=== PATIENT | male | born 1955 | race Caucasian/White ===

== ENCOUNTER → 2017-07-04 | Day surgery (SDC) | payer OTHER ==
[~2017-07-04] MED LIST: ASPIR 8181 MG PO; CARVEDILOL PO; CEFTRIAXONE SOD 1 GM VIAL ONE; CHOLESTYRAMINE PO; DEXAMETHASONE SOD PHOS INJ 4 MG/ML VIAL ONE; EPHEDRINE SULFATE INJ 50 MG/10 ML SYR ONE; FENTANYL CITRATE/PF 100MCG/2 ML INJ ONE; IOPAMIDOL 610MG/1ML 300 MG/ML VIAL IV ONE; ISOFLURANE INHAL SOLN 250 ML BTL INH ONE; LIDOCAINE HCL 2% LOCAL INJ 5 ML SDV VIAL INJ ONE; MIDAZOLAM HCL 2 MG/2 ML VIAL ONE; ONDANSETRON HCL INJ 2 MG/ML VIAL ONE; PROMETHAZINE HCL (IM) 25 MG/ML VIAL ONE; PROPAFENONE PO; PROPOFOL IV EMULSION 10 MG/ML 20 ML VIAL ONE
--- NOTE | 2017-07-04 18:23 | Operative Report ---
DATE OF PROCEDURE: July 04, 2017 PREOPERATIVE DIAGNOSIS 1. Microscopic hematuria. 2. Right-sided hydronephrosis. POSTOPERATIVE DIAGNOSIS 1. Microscopic hematuria. 2. Right-sided hydronephrosis. PROCEDURES 1. Cystourethroscopy with left ureteral catheterization and left retrograde pyelogram (entirely separate procedure for the microscopic hematuria). 2. Cystourethroscopy with right ureteral catheterization and right retrograde pyelogram. 3. Cystourethroscopy with insertion of a right indwelling ureteral stent (entirely separate procedure for the diagnosis of right hydronephrosis). 4. Supervision of fluoroscopy. 5. Interpretation of retrograde pyelography. ANESTHESIA: General. ESTIMATED BLOOD LOSS: Minimal. COMPLICATIONS: None. INDICATIONS FOR PROCEDURE: Mr. Lyon is a very pleasant 61-year-old male with a very large 8 mm proximal ureteral stone obstructing. He and I had a long discussion of the alternatives, the risks and benefits including doing nothing, cystoscopy with stent placement, percutaneous nephrostomy. He voiced understanding of the options, the alternatives, the fact that the stent is a temporary indwelling device and must be removed and that failure to do so could lead to encrustation, infection, inflammation of the natural ostium of the kidney and even . He elects to proceed. PROCEDURE IN DETAIL: After informed consent was obtained, the patient was taken to the operative suite and placed supine on the operating table and underwent general anesthesia by the anesthesia service. He was then placed in the dorsal lithotomy position and sterilely prepped and draped in the standard fashion for cystoscopy. A 22.5-American cystoscope was inserted per urethra. A normal urethra was noted. Panendoscopy of the bladder revealed no tumors, no stones. Both ureteral orifices were in their normal anatomical location and position and were seen to efflux clear urine. Bilateral retrograde pyelograms were performed, revealing a normal left retrograde pyelogram and a large 8 mm proximal right ureteral stone at the UPJ with proximal hydronephrosis. With a moderate degree of difficulty, the right collecting system was accessed utilizing an angle-tip Roadrunner and a 5-American open-ended catheter. A wire was exchanged for a Super Stiff wire. A 6 x 28 cm ureteral stent was then deployed with a coil in the renal pelvis and a coil in the patient's bladder. The patient's bladder was drained. He was awakened from anesthesia and transported to the recovery room in excellent condition with no untoward effects noted. SUPERVISION OF FLUOROSCOPY AND INTERPRETATION OF RETROGRADE URETEROPYELOGRAPHY: I was present throughout the entire procedure, and I supervised the use of fluoroscopy. There was no radiologist present at any time during this procedure. Attention was turned toward the left and right ureteral orifices, which was catheterized with a 5-American open-ended catheter. A retrograde pyelogram was performed. On the left it revealed a delicate ureter, a delicate pelvicaliceal system, no evidence of filling defects, no evidence of hydronephrosis, on the right side an 8 mm proximal ureteral stone with right hydronephrosis. Postoperative views on the right side revealed a stent in adequate position. IMPRESSION 1. Normal left retrograde pyelogram. 2. Right proximal ureteral calculus 8 x 8 mm. 3. Right-sided hydronephrosis. 4. Right ureteral stent in adequate position. Job#: [id number]
== END | disposition home or self-care (01) ==
LOC: OR 09:54
PROVIDERS: ATTEND Urology
CPT/HCPCS: 74420; 93005; C2617; J0696; J1100; J2001; J2250; J2405; J2550

== ENCOUNTER → 2018-02-19 | Outpatient (CLI) | payer OTHER ==
[~2018-02-19] MED LIST changes: -CEFTRIAXONE SOD 1 GM VIAL ONE; -DEXAMETHASONE SOD PHOS INJ 4 MG/ML VIAL ONE; -EPHEDRINE SULFATE INJ 50 MG/10 ML SYR ONE; -FENTANYL CITRATE/PF 100MCG/2 ML INJ ONE; -IOPAMIDOL 610MG/1ML 300 MG/ML VIAL IV ONE; -ISOFLURANE INHAL SOLN 250 ML BTL INH ONE; -LIDOCAINE HCL 2% LOCAL INJ 5 ML SDV VIAL INJ ONE; -MIDAZOLAM HCL 2 MG/2 ML VIAL ONE; -ONDANSETRON HCL INJ 2 MG/ML VIAL ONE; -PROMETHAZINE HCL (IM) 25 MG/ML VIAL ONE; -PROPOFOL IV EMULSION 10 MG/ML 20 ML VIAL ONE
--- NOTE | 2018-02-19 15:48 | Diagnostic Imaging Report ---
Exam: KUB. Comparison: <None.> Findings: There is a nonobstructive bowel gas pattern. There is no free intraperitoneal air. Bowel gas partially obscures visualization of the kidneys. A 6 mm and a 7 mm calcification projects over the right mid abdomen. There is a 3 mm calcification in a right paraspinal location at the L2 level. Status post cholecystectomy. Impression: Limited evaluation of the kidneys secondary to overlying bowel gas. Calcifications measuring 6 and 7 mm in the right mid abdomen may represent renal stones or overlying bowel. A 3 mm calcification at the right L2 level is indeterminate and may represent a ureteral stone and can be correlated with symptoms. Signed by: Dr. Abundio Webb MD on 02/19/2018 3:45 PM
== END ==
LOC: RAD 14:22
PROVIDERS: ATTEND Urology
DX: R31.21 Asymptomatic microscopic hematuria (principal)
CPT/HCPCS: 74018

== ENCOUNTER → 2018-03-14 | Day surgery (SDC) | payer OTHER ==
[~2018-03-14] MED LIST changes: +CARVEDILOL3.125 MG PO; +CEFTRIAXONE SOD 1 GM/NS 50 ML 50 ML IV ONE; +DEXAMETHASONE SOD PHOS INJ 4 MG/ML VIAL ONE; +LIDOCAINE HCL 2% LOCAL INJ 5 ML SDV VIAL INJ ONE; +ONDANSETRON HCL INJ 2MG/ML 2ML 2 MG/ML VIAL ONE; +PROPAFENONE HC325 MG PO; +PROPOFOL IV EMULSION 10 MG/ML 20 ML VIAL ONE; +QUESTRAN PACKET4 GM PO; +SEVOFLURANE INHAL SOLN 250 ML PEN BTL ONE
--- OUTSIDE RECORDS SUMMARY | 2018-03-14 10:56 | XMS REPORT | CCD ---
Author Author Auto Generated Organization [facility] Address Unknown Phone Unavailable Care Team Providers Care Social Media Marketing Specialist Name Role Phone Kyle Arce CP Allergies, Adverse Reactions, Alerts Substance Reaction Status NKDA Active Problem List Condition Effective Dates Status Chest pain < 07/08/2011 Inactive Sleep apnea Active Medications Medication Instructions Start Date End Date Status Saline Flush 0.9% 5 ml, Route: IVP, Drug Form: INJ, 07/07/2011 07/08/2011 Completed PRN, PRN Line Flush, Start date: 07/07/11 11:51:00, Duration: 24 hr, Stop date: 07/08/11 11:50:00 Unknown Home Substitution Allowed 07/07/2011 07/07/2011 Deleted Medication Sodium Chloride 0.9% 1,000 mL, Rate: 1,000 ml/hr, Infuse 07/07/2011 07/07/2011 Completed (Bolus) IV 1,000 mL over: 1 hr, Route: IV, Dosing Weight 122.727 kg, Total Volume: 1,000, Bolus Dose, Priority: STAT, Start date: 07/07/11 12:00:00, Duration: 1 doses or times, Stop date: 07/07/11 12:59:00 heparin 5,000 unit, 1 mL, Route: SUB-Q, 07/08/2011 07/08/2011 Discontinued Drug form: INJ, Q12H, Start date: 07/08/11 9:00:00, Duration: 30 day, Stop date: 08/06/11 21:00:00 Reglan 10 mg, 2 mL, Route: IVP, Drug form: 07/07/2011 07/07/2011 Completed INJ, ONCE, Priority: STAT, Start date: 07/07/11 14:05:00, Stop date: 07/07/11 14:05:00 GI cocktail 40 mL, Route: PO, Drug Form: SUSP, 07/07/2011 07/07/2011 Completed ONCE, STAT, Start date: 07/07/11 17:29:00, Stop date: 07/07/11 17:29:00 Saline Flush 0.9% 5 ml, Route: IVP, Drug Form: INJ, 07/07/2011 07/08/2011 Discontinued PRN, PRN Line Flush, Start date: 07/07/11 23:03:00, Duration: 30 day, Stop date: 08/06/11 23:02:00 Saline Flush 0.9% 5 ml, Route: IVP, Drug Form: INJ, 07/08/2011 07/08/2011 Discontinued Q12H, Start date: 07/08/11 9:00:00, Duration: 30 day, Stop date: 08/06/11 21:00:00 acetaminophen 650 mg, 2 tab, Route: PO, Drug 07/07/2011 07/08/2011 Discontinued form: TAB, Q4H, PRN Headache, Start date: 07/07/11 23:03:00, Duration: 30 day, Stop date: 08/06/11 23:02:00 ondansetron 4 mg, 1 tab, Route: PO, Drug form: 07/07/2011 07/08/2011 Discontinued TAB, Q8H, PRN Nausea & Vomiting, Start date: 07/07/11 23:03:00, Duration: 30 day, Stop date: 08/06/11 23:02:00 morphine Sulfate 2 mg, 1 mL, Route: IVP, Drug form: 07/07/2011 07/08/2011 Discontinued INJ, Q15Min, PRN Chest Pain, Start date: 07/07/11 23:03:00, Duration: 2 doses or times, Stop date: Limited # of times nitroglycerin SL Tab 0.4 mg, 1 tab, Route: SL, Drug 07/07/2011 07/08/2011 Discontinued form: TAB, Q5Min, PRN Chest Pain, Start date: 07/07/11 23:03:00, Duration: 3 doses or times, Stop date: Limited # of times aspirin 325 mg 325 mg, 1 tab, Route: PO, Drug 07/08/2011 07/08/2011 Discontinued tablet, enteric form: ECTAB, Daily, Start date: coated 07/08/11 9:00:00, Duration: 30 day, Stop date: 08/06/11 9:00:00 cholestyramine 1 sccop, Substitution Allowed 07/07/2011 Ordered Vital Signs Most recent to oldest [Reference Range]: 1 2 3 Height 180.34 cm (07/07/2011 11:19:00) Temperature Oral [96.4-99.1 DegF] 97.6 DegF (07/08/2011 08:00:00) 97.6 DegF (07/08/2011 05:14:00) 97.2 DegF (07/07/2011 23:58:00) Systolic Blood Pressure [90-140 mmHg] 116 mmHg (07/08/2011 08:00:00) 136 mmHg (07/08/2011 05:14:00) 127 mmHg (07/07/2011 23:58:00) Diastolic Blood Pressure [60-90 mmHg] 73 mmHg (07/08/2011 08:00:00) 84 mmHg (07/08/2011 05:14:00) 65 mmHg (07/07/2011 23:58:00) Respiratory Rate [14-20 BRMIN] 20 BRMIN (07/08/2011 08:00:00) 20 BRMIN (07/08/2011 05:14:00) 18 BRMIN (07/07/2011 23:58:00) Peripheral Pulse Rate [60-100 bpm] 72 bpm (07/08/2011 08:00:00) 81 bpm (07/07/2011 19:00:00) Peripheral Pulse Rate 81 bpm (07/07/2011 23:15:00) Weight 122.727 kg (07/07/2011 11:19:00) Results URINALYSIS Most recent to oldest [Reference Range]: 1 2 3 UA Turbidity [Clear] Clear (07/07/2011 11:37:00) UA Color [Yellow] Yellow *NA* (07/07/2011 11:37:00) UA pH [5.0-8.0] 6.0 (07/07/2011 11:37:00) UA Spec Grav [<=1.030] 1.010 (07/07/2011 11:37:00) UA Glucose [Negative mg/dL] Negative mg/dL (07/07/2011 11:37:00) UA Blood [Negative] Negative (07/07/2011 11:37:00) UA Ketones [Negative mg/dL] Negative mg/dL *NA* (07/07/2011 11:37:00) UA Protein [Negative mg/dL] Negative mg/dL (07/07/2011 11:37:00) UA Urobilinogen [0.1-1.0 EU/dL] 0.2 EU/dL (07/07/2011 11:37:00) UA Bili [Negative] Negative *NA* (07/07/2011 11:37:00) UA Leuk Est [Negative] Negative (07/07/2011 11:37:00) UA Nitrite [Negative] Negative (07/07/2011 11:37:00) UA WBC [None Seen] None Seen (07/07/2011 11:37:00) UA RBC [0-2] None Seen (07/07/2011 11:37:00) UA Bacteria [None Seen] None Seen (07/07/2011 11:37:00) UA Sq Epi [Few] None Seen (07/07/2011 11:37:00) Micro? Performed (07/07/2011 11:37:00) CHEMISTRY Most recent to oldest [Reference Range]: 1 2 3 Sodium Lvl [135-145 mEq/L] 141 mEq/L (07/07/2011 11:55:00) Potassium Lvl [3.5-5.1 mEq/L] 4.3 mEq/L (07/07/2011 11:55:00) Chloride Lvl [95-109 mEq/L] 105 mEq/L (07/07/2011 11:55:00) CO2 [24-32 mEq/L] 25 mEq/L (07/07/2011 11:55:00) AGAP [10.0-20.0 mEq/L] 15.3 mEq/L (07/07/2011 11:55:00) Creatinine Lvl [0.5-1.4 mg/dL] 0.8 mg/dL (07/07/2011 11:55:00) BUN [7-22 mg/dL] 11 mg/dL (07/07/2011 11:55:00) B/C Ratio [6-25] 14 (07/07/2011 11:55:00) Glucose Lvl [70-99 mg/dL] 91 mg/dL 1 (07/07/2011 11:55:00) Total Protein [6.4-8.4 g/dL] 6.9 g/dL (07/07/2011 11:55:00) Albumin Lvl [3.5-5.0 g/dL] 3.5 g/dL (07/07/2011 11:55:00) Globulin [2.0-4.0 g/dL] 3.4 g/dL (07/07/2011 11:55:00) A/G Ratio [0.7-1.6] 1.0 (07/07/2011 11:55:00) Calcium Lvl [8.5-10.5 mg/dL] 8.5 mg/dL (07/07/2011 11:55:00) Phosphorus [2.5-4.5 mg/dL] 3.7 mg/dL (07/07/2011 11:55:00) Magnesium Lvl [1.8-2.4 mg/dL] 2.1 mg/dL (07/07/2011 11:55:00) ALT [0-65 U/L] 103 U/L *HI* (07/07/2011 11:55:00) AST [0-37 U/L] 47 U/L *HI* (07/07/2011 11:55:00) Alk Phos [39-136 U/L] 96 U/L (07/07/2011 11:55:00) Bili Total [0.2-1.3 mg/dL] 0.5 mg/dL (07/07/2011 11:55:00) Total CK [12-191 U/L] 107 U/L (07/08/2011 04:11:00) 115 U/L (07/07/2011 21:34:00) 133 U/L (07/07/2011 11:55:00) CK MB [0.5-3.6 ng/mL] 0.6 ng/mL (07/08/2011 04:11:00) 0.6 ng/mL (07/07/2011 21:34:00) CK MB Index [0.0-2.5] 0.6 (07/08/2011 04:11:00) 0.5 (07/07/2011 21:34:00) Troponin-T [0.000-0.100 ng/mL] <0.010 ng/mL (07/08/2011 04:11:00) <0.010 ng/mL (07/07/2011 21:34:00) Troponin-I [0.00-0.40 ng/mL] <0.02 ng/mL (07/08/2011 04:11:00) <0.02 ng/mL (07/07/2011 11:55:00) Myoglobin [25-72 ng/mL] 48 ng/mL (07/07/2011 21:34:00) U Amph Scr [Negative] Negative *NA* (07/07/2011 12:05:00) U Marija Scr [Negative] Negative *NA* (07/07/2011 12:05:00) U Benzodia Scr [Negative] Negative *NA* (07/07/2011 12:05:00) U Cocaine Scr [Negative] Negative *NA* (07/07/2011 12:05:00) U Opiate Scr [Negative] Negative *NA* (07/07/2011 12:05:00) U Phencyc Scr [Negative] Negative *NA* (07/07/2011 12:05:00) U Cannab Scr [Negative] Negative *NA* (07/07/2011 12:05:00) UDS Note See Note 2 *NA* (07/07/2011 12:05:00) 1Interpretive Data: Adult reference range values reflect the clinical guidelinesof the [place] [employer]. 2Interpretive Data: Drugs reported as positive have not been confirmed by a second method and should be used for medical purposes only. To orderconfirmation, contact laboratory. note: Below are cut-off concentrations for all urine drugs of abuse performed in the laboratory. Some drugs listed in the table may not be included in this panel.Description Cut-off concentration Amphetamine 1000 ng/mLBarbiturates 200 ng/mLBenzodiazepines 300 ng/mLCocaine metabolites 300 ng/mLOpiates 300 ng/mLPhencyclidine 25 ng/mLPropoxyphene 300 ng/mLMarijuana metabolites 50 ng/mLMethadone 300 ng/mLUrine alcohol 20 mg/dL HEMATOLOGY Most recent to oldest [Reference Range]: 1 2 3 WBC [3.7-10.4 K/CMM] 7.7 K/CMM (07/07/2011 11:55:00) RBC [4.70-6.10 M/CMM] 4.70 M/CMM (07/07/2011 11:55:00) Hgb [14.0-18.0 g/dL] 14.6 g/dL (07/07/2011 11:55:00) Hct [42.0-54.0 %] 43.4 % (07/07/2011 11:55:00) MCV [80.0-94.0 fL] 92.3 fL (07/07/2011 11:55:00) MCH [27.0-31.0 pg] 31.1 pg *HI* (07/07/2011 11:55:00) MCHC [32.0-36.0 g/dL] 33.6 g/dL (07/07/2011 11:55:00) RDW [11.5-14.5 %] 12.4 % (07/07/2011 11:55:00) Platelet [133-450 K/CMM] 166 K/CMM (07/07/2011 11:55:00) MPV [7.4-10.4 fL] 8.8 fL (07/07/2011 11:55:00) Segs [45.0-75.0 %] 53.2 % (07/07/2011 11:55:00) Lymphocytes [20.0-40.0 %] 31.2 % (07/07/2011 11:55:00) Monocytes [2.0-12.0 %] 10.6 % (07/07/2011 11:55:00) Eosinophils [0.0-4.0 %] 4.2 % *HI* (07/07/2011 11:55:00) Basophils [0.0-1.0 %] 0.8 % (07/07/2011 11:55:00) Segs-Bands # [1.5-8.1 K/CMM] 4.1 K/CMM (07/07/2011 11:55:00) Lymphocytes # [1.0-5.5 K/CMM] 2.4 K/CMM (07/07/2011 11:55:00) Monocytes # [0.0-0.8 K/CMM] 0.8 K/CMM (07/07/2011 11:55:00) Eosinophils # [0.0-0.5 K/CMM] 0.3 K/CMM (07/07/2011 11:55:00) Basophils # [0.0-0.2 K/CMM] 0.1 K/CMM (07/07/2011 11:55:00) PT [12.0-14.7 seconds] 13.0 seconds (07/07/2011 11:55:00) INR [0.85-1.17] 0.98 3 (07/07/2011 11:55:00) PTT [22.9-35.8 seconds] 29.2 seconds 4 (07/07/2011 11:55:00) 3Interpretive Data: RECOMMENDED RANGES FOR PROTIME INR: 2.0-3.0 for most medical and surgical thromboembolic states. 2.5-3.5 for artificial heart valves and recurrent embolism.INR SHOULD BE USED ONLY FOR PATIENTS ON STABLE ANTICOAGULANT THERAPY. 4Interpretive Data: Heparin Therapeutic Range: 57 - 92 Seconds
--- OUTSIDE RECORDS SUMMARY | 2018-03-14 10:56 | XMS REPORT | Summary of Care ---
Author Author [facility] Organization [facility] Address Unknown Phone Unavailable Encounter URIEL Castelan(SHAWNA) [id number] Date(s): 02/11/15 - 02/12/15 [facility] [address] [place] [address]- (1 [phone] Discharge Diagnosis: Chest pain Discharge Disposition: Home Attending Physician: Nilton Nguyễn MD Vital Signs 1 2 3 Most recent to oldest [Reference Range]: 180.34 cm (02/11/15 8:02 PM) Height 98.1 DegF (02/12/15 1:10 AM) 98.1 DegF (02/11/15 9:57 PM) 98.1 DegF (02/11/15 8:02 PM) Temperature Oral [96.4-99.1 DegF] 112/68 mmHg (02/12/15 1:10 AM) 168/76 mmHg *HI* (02/11/15 8:56 PM) Blood Pressure [90-140/60-90 mmHg] 150 mmHg *HI* (02/11/15 9:57 PM) Systolic Blood Pressure [90-140 mmHg] 78 mmHg (02/11/15 9:57 PM) Diastolic Blood Pressure [60-90 mmHg] 17 BRMIN (02/12/15 1:10 AM) 17 BRMIN (02/11/15 9:57 PM) 18 BRMIN (02/11/15 8:56 PM) Respiratory Rate [14-20 BRMIN] 61 bpm (02/12/15 1:10 AM) 78 bpm (02/11/15 9:57 PM) 85 bpm (02/11/15 8:56 PM) Peripheral Pulse Rate [60-100 bpm] 131.818 kg (02/11/15 8:02 PM) Weight 40.53 m2 (02/11/15 8:02 PM) Body Mass Index Problem List Condition Effective Dates Status Health Status Informant Irregular heart Resolved beat(Confirmed) Sleep Active apnea(Confirmed) Allergies, Adverse Reactions, Alerts Substance Reaction Severity Status NKDA Active Medications Saline Flush 0.9% 10 mL, Route: IVP, Drug Form: INJ, Dosing Weight 131.818, kg, PRN, PRN Line Flus h, Start date: 02/11/15 20:58:00, Duration: 30 day, Stop date: 03/13/15 20:57:00 Notes: (Same as: BD Posiflush) Start Date: 02/11/15 Stop Date: 02/12/15 Status: Discontinued Results ELECTROLYTES Most recent to 1 2 oldest [Reference Range]: Sodium Lvl [135-145 139 mEq/L mEq/L] (02/11/15 9:12 PM) Potassium Lvl 3.8 mEq/L [3.5-5.1 mEq/L] (02/11/15 9:12 PM) Chloride Lvl [95-109 106 mEq/L mEq/L] (02/11/15 9:12 PM) CO2 [24-32 mEq/L] 26 mEq/L (02/11/15 9:12 PM) AGAP [10.0-20.0 10.8 mEq/L mEq/L] (02/11/15 9:12 PM) CHEM PANEL Most recent to 1 2 oldest [Reference Range]: Creatinine Lvl 1.11 mg/dL [0.50-1.40 mg/dL] (02/11/15 9:12 PM) eGFR 72 mL/min/1.73m2 1 *NA* (02/11/15 9:12 PM) BUN [7-22 mg/dL] 15 mg/dL (02/11/15 9:12 PM) B/C Ratio [6-25] 14 (02/11/15 9:12 PM) Glucose Lvl [70-99 109 mg/dL mg/dL] *HI* (02/11/15 9:12 PM) Total Protein 7.7 g/dL [6.4-8.4 g/dL] (02/11/15 9:12 PM) Albumin Lvl [3.5-5.0 3.6 g/dL g/dL] (02/11/15 9:12 PM) Globulin [2.0-4.0 4.1 g/dL g/dL] *HI* (02/11/15 9:12 PM) A/G Ratio [0.7-1.6] 0.9 (02/11/15 9:12 PM) Calcium Lvl 8.4 mg/dL [8.5-10.5 mg/dL] *LOW* (02/11/15 9:12 PM) ALT [0-65 unit/L] 64 unit/L (02/11/15 9:12 PM) AST [0-37 unit/L] 33 unit/L (02/11/15 9:12 PM) Alk Phos [39-136 102 unit/L unit/L] (02/11/15 9:12 PM) Bili Total [0.2-1.3 0.7 mg/dL mg/dL] (02/11/15 9:12 PM) 1Result Comment: The eGFR is calculated using the CKD-EPI formula. In most young, healthy individuals the eGFR will be >90 mL/min/1.73m2. The eGFR declines with age. An eGFR of 60-89 may be normal in some populations, particularly the elderly, for whom the CKD-EPI formula has not been extensively validated. Use of the eGFR is not recommended in the following populations: Individuals with unstable creatinine concentrations, including patients and those with serious co-morbid conditions. Patients with extremes in muscle mass or diet. The data above are obtained from the National Kidney Disease Education Program ( NKDEP) which additionally recommends that when the eGFR is used in patients with extremes of body mass index for purposes of drug dosing, the eGFR should be mul tiplied by the estimated BMI. CARDIAC ENZYMES Most recent to 1 2 oldest [Reference Range]: Total CK [12-191 100 unit/L unit/L] (02/11/15 9:12 PM) CK MB [0.5-3.6 0.7 ng/mL 0.6 ng/mL ng/mL] (02/12/15 12:16 AM) (02/11/15 9:12 PM) CK MB Index 0.6 [0.0-2.5] (02/11/15 9:12 PM) Troponin-I <0.02 ng/mL <0.02 ng/mL [0.00-0.40 ng/mL] (02/12/15 12:16 AM) (02/11/15 9:12 PM) HEMATOLOGY Most recent to 1 2 oldest [Reference Range]: WBC [3.7-10.4 K/CMM] 8.6 K/CMM (02/11/15 9:12 PM) RBC [4.70-6.10 4.96 M/CMM M/CMM] (02/11/15 9:12 PM) Hgb [14.0-18.0 g/dL] 15.4 g/dL (02/11/15 9:12 PM) Hct [42.0-54.0 %] 46.8 % (02/11/15 9:12 PM) MCV [80.0-94.0 fL] 94.4 fL *HI* (02/11/15 9:12 PM) MCH [27.0-31.0 pg] 31.1 pg *HI* (02/11/15 9:12 PM) MCHC [32.0-36.0 32.9 g/dL g/dL] (02/11/15 9:12 PM) RDW [11.5-14.5 %] 13.6 % (02/11/15 9:12 PM) Platelet [133-450 157 K/CMM K/CMM] (02/11/15 9:12 PM) MPV [7.4-10.4 fL] 9.1 fL (02/11/15 9:12 PM) Segs [45.0-75.0 %] 58.0 % (02/11/15 9:12 PM) Lymphocytes 27.1 % [20.0-40.0 %] (02/11/15 9:12 PM) Monocytes [2.0-12.0 10.2 % %] (02/11/15 9:12 PM) Eosinophils [0.0-4.0 4.0 % %] (02/11/15 9:12 PM) Basophils [0.0-1.0 0.7 % %] (02/11/15 9:12 PM) Segs-Bands # 5.0 K/CMM [1.5-8.1 K/CMM] (02/11/15 9:12 PM) Lymphocytes # 2.3 K/CMM [1.0-5.5 K/CMM] (02/11/15 9:12 PM) Monocytes # [0.0-0.8 0.9 K/CMM K/CMM] *HI* (02/11/15 9:12 PM) Eosinophils # 0.3 K/CMM [0.0-0.5 K/CMM] (02/11/15 9:12 PM) Basophils # [0.0-0.2 0.1 K/CMM K/CMM] (02/11/15 9:12 PM) Immunizations No data available for this section Procedures Procedure Date Related Diagnosis Body Site Cholecystectomy Social History Social History Type Response Smoking Status Never smoker; Exposure to Tobacco Smoke None; Cigarette Smoking Last 365 Days No; Reg Smoking Cessation Counseling No Assessment and Plan No data available for this section
--- OUTSIDE RECORDS SUMMARY | 2018-03-14 10:56 | XMS REPORT | Continuity of Care Document ---
Author Author [facility] Interface Address Unknown Phone Unavailable Problems Problem Status Onset Date Classification Date Reported Comments Source Discharge Diagnosis: Chest pain 02/12/2015 02/15/2015 [facility] CHEST PAIN Active 02/11/2015 [facility] Chest pain Inactive Problem 07/10/2011 [facility] Sleep apnea Active Problem 07/10/2011 [facility] Irregular heart beat Resolved Problem 02/15/2015 [facility] Sleep apnea Active Problem 02/15/2015 [facility] CHEST PAIN NOS Active [facility] Medications Medication Details Route Status Patient Instructions Ordering Provider Order Date Source Saline Flush 0.9% 10 mL, Route: IVP, Drug Form: INJ, Dosing Weight 131.818, kg, PRN, PRN Line Flush, Start date: 02/11/15 20:58:00, Duration: 30 day, Stop date: 03/13/15 20:57:00Notes: (Same as: BD Posiflush) No Longer Active 02/12/2015 [facility] heparin 5,000 unit, 1 mL, Route: SUB-Q, Drug form: INJ, Q12H, Start date: 07/08/11 9:00:00, Duration: 30 day, Stop date: 08/06/11 21:00:00 SUB-Q No Longer Active Javier 07/08/2011 [facility] Saline Flush 0.9% 5 ml, Route: IVP, Drug Form: INJ, Q12H, Start date: 07/08/11 9:00:00, Duration: 30 day, Stop date: 08/06/11 21:00:00 IVP No Longer Active Javier 07/08/2011 [facility] aspirin 325 mg tablet, enteric coated 325 mg, 1 tab, Route: PO, Drug form: ECTAB, Daily, Start date: 07/08/11 9:00:00, Duration: 30 day, Stop date: 08/06/11 9:00:00 PO No Longer Active Javier 07/08/2011 [facility] Saline Flush 0.9% 5 ml, Route: IVP, Drug Form: INJ, PRN, PRN Line Flush, Start date: 07/07/11 23:03:00, Duration: 30 day, Stop date: 08/06/11 23:02:00 IVP No Longer Active [place] 07/08/2011 [facility] acetaminophen 650 mg, 2 tab, Route: PO, Drug form: TAB, Q4H, PRN Headache, Start date: 07/07/11 23:03:00, Duration: 30 day, Stop date: 08/06/11 23:02:00 PO No Longer Active [place] 07/08/2011 [facility] ondansetron 4 mg, 1 tab, Route: PO, Drug form: TAB, Q8H, PRN Nausea & Vomiting, Start date: 07/07/11 23:03:00, Duration: 30 day, Stop date: 08/06/11 23:02:00 PO No Longer Active [place] 07/08/2011 [facility] morphine Sulfate 2 mg, 1 mL, Route: IVP, Drug form: INJ, Q15Min, PRN Chest Pain, Start date: 07/07/11 23:03:00, Duration: 2 doses or times, Stop date: Limited # of times IVP No Longer Active [place] 07/08/2011 [facility] nitroglycerin SL Tab 0.4 mg, 1 tab, Route: SL, Drug form: TAB, Q5Min, PRN Chest Pain, Start date: 07/07/11 23:03:00, Duration: 3 doses or times, Stop date: Limited # of times SL No Longer Active [place] 07/08/2011 [facility] cholestyramine 1 sccop, Substitution Allowed Active 07/08/2011 [facility] GI cocktail 40 mL, Route: PO, Drug Form: SUSP, ONCE, STAT, Start date: 07/07/11 17:29:00, Stop date: 07/07/11 17:29:00 PO No Longer Active Erik 07/07/2011 [facility] Reglan 10 mg, 2 mL, Route: IVP, Drug form: INJ, ONCE, Priority: STAT, Start date: 07/07/11 14:05:00, Stop date: 07/07/11 14:05:00 IVP No Longer Active [place] 07/07/2011 [facility] Sodium Chloride 0.9% (Bolus) IV 1,000 mL 1,000 mL, Rate: 1,000 ml/hr, Infuse over: 1 hr, Route: IV, Dosing Weight 122.727 kg, Total Volume: 1,000, Bolus Dose, Priority: STAT, Start date: 07/07/11 12:00:00, Duration: 1 doses or times, Stop date: 07/07/11 12:59:00 IV No Longer Active [facility] 07/07/2011 [facility] Saline Flush 0.9% 5 ml, Route: IVP, Drug Form: INJ, PRN, PRN Line Flush, Start date: 07/07/11 11:51:00, Duration: 24 hr, Stop date: 07/08/11 11:50:00 IVP No Longer Active [facility] 07/07/2011 [facility] Unknown Home Medication Substitution Allowed No Longer Active 07/07/2011 [facility] Allergies, Adverse Reactions, Alerts Substance Category Reaction Severity Reaction type Status Date Reported Comments Source Immunizations Immunization Date Given Site Status Last Updated Comments Source Results Order Name Results Value Reference Range Date Interpretation Comments Source CARDIAC ENZYMES Troponin-I null 0.00 - 0.40 02/12/2015 [facility] CARDIAC ENZYMES CK MB 0.7 ng/mL 0.5 - 3.6 02/12/2015 [facility] CARDIAC ENZYMES CK MB Index 0.6 0.0 - 2.5 02/12/2015 [facility] CARDIAC ENZYMES Troponin-I null 0.00 - 0.40 02/12/2015 [facility] CARDIAC ENZYMES Total CK 100 unit/L 12 - 191 02/12/2015 [facility] CARDIAC ENZYMES CK MB 0.6 ng/mL 0.5 - 3.6 02/12/2015 [facility] CHEM PANEL eGFR 72 mL/min/1.73m2 02/12/2015 Result Comment: The eGFR is calculated using the [...] from the National Kidney Disease Education Program (NKDEP) which additionally recommends that when the eGFR is used in patients with extremes of body mass index for purposes of drug dosing, the eGFR should be multiplied by the estimated BMI. [facility] CHEM PANEL Total Protein 7.7 g/dL 6.4 - 8.4 02/12/2015 [facility] CHEM PANEL Calcium Lvl 8.4 mg/dL 8.5 - 10.5 02/12/2015 [facility] CHEM PANEL ALT 64 unit/L 0 - 65 02/12/2015 [facility] CHEM PANEL Albumin Lvl 3.6 g/dL 3.5 - 5.0 02/12/2015 [facility] CHEM PANEL AST 33 unit/L 0 - 37 02/12/2015 [facility] CHEM PANEL Bili Total 0.7 mg/dL 0.2 - 1.3 02/12/2015 [facility] CHEM PANEL Alk Phos 102 unit/L 39 - 136 02/12/2015 [facility] CHEM PANEL B/C Ratio 14 6 - 25 02/12/2015 [facility] CHEM PANEL AGAP 10.8 meq/L 10.0 - 20.0 02/12/2015 [facility] CHEM PANEL Globulin 4.1 g/dL 2.0 - 4.0 02/12/2015 [facility] CHEM PANEL A/G Ratio 0.9 0.7 - 1.6 02/12/2015 [facility] CHEM PANEL Glucose Lvl 109 mg/dL 70 - 99 02/12/2015 [facility] CHEM PANEL BUN 15 mg/dL 7 - 22 02/12/2015 [facility] CHEM PANEL Sodium Lvl 139 meq/L 135 - 145 02/12/2015 [facility] CHEM PANEL Chloride Lvl 106 meq/L 95 - 109 02/12/2015 [facility] CHEM PANEL Creatinine Lvl 1.11 mg/dL 0.50 - 1.40 02/12/2015 [facility] CHEM PANEL Potassium Lvl 3.8 meq/L 3.5 - 5.1 02/12/2015 [facility] CHEM PANEL CO2 26 meq/L 24 - 32 02/12/2015 [facility] HEMATOLOGY Basophils # 0.1 K/CMM 0.0 - 0.2 02/12/2015 [facility] HEMATOLOGY Segs-Bands # 5.0 K/CMM 1.5 - 8.1 02/12/2015 [facility] HEMATOLOGY Eosinophils # 0.3 K/CMM 0.0 - 0.5 02/12/2015 [facility] HEMATOLOGY Monocytes # 0.9 K/CMM 0.0 - 0.8 02/12/2015 [facility] HEMATOLOGY Lymphocytes # 2.3 K/CMM 1.0 - 5.5 02/12/2015 [facility] Basophils 0.7 % 0.0 - 1.0 02/12/2015 [facility] HEMATOLOGY Eosinophils 4.0 % 0.0 - 4.0 02/12/2015 [facility] Segs 58.0 % 45.0 - 75.0 02/12/2015 [facility] Monocytes 10.2 % 2.0 - 12.0 02/12/2015 [facility] Lymphocytes 27.1 % 20.0 - 40.0 02/12/2015 [facility] WBC 8.6 K/CMM 3.7 - 10.4 02/12/2015 [facility] RBC 4.96 M/CMM 4.70 - 6.10 02/12/2015 [facility] Hgb 15.4 g/dL 14.0 - 18.0 02/12/2015 [facility] MCV 94.4 fL 80.0 - 94.0 02/12/2015 [facility] Hct 46.8 % 42.0 - 54.0 02/12/2015 [facility] MCHC 32.9 g/dL 32.0 - 36.0 02/12/2015 [facility] MCH 31.1 pg 27.0 - 31.0 02/12/2015 [facility] RDW 13.6 % 11.5 - 14.5 02/12/2015 [facility] Platelet 157 K/CMM 133 - 450 02/12/2015 [facility] MPV 9.1 fL 7.4 - 10.4 02/12/2015 [facility] Chest 1view DX Chest 1view DX PROCEDURE: Chest 1view REASON FOR EXAM: See Clinic Indication CLINICAL INDICATION: Chest pain COMPARISON: 07/07/2011. FINDINGS: No acute process. No focal consolidation, pleural effusion, or pneumothorax. Stable cardiac silhouette and mediastinum. SL: 12 02/11/2015 - - Read by: Jordan Bravo MD Dictated Date/time: 02/11/15 22:39 Electronically Signed by: Jordan Bravo MD 02/11/15 22:39 FINAL REPORT [facility] CHEMISTRY Troponin-T null 0.000 - 0.100 07/08/2011 Normal [facility] CHEMISTRY Total CK 107 U/L 12 - 191 07/08/2011 Normal [facility] CHEMISTRY Troponin-I null 0.00 - 0.40 07/08/2011 Normal [facility] CHEMISTRY CK MB Index 0.6 0.0 - 2.5 07/08/2011 Normal [facility] CHEMISTRY CK MB 0.6 ng/mL 0.5 - 3.6 07/08/2011 Normal [facility] CHEMISTRY Total CK 115 U/L 12 - 191 07/08/2011 Normal [facility] CHEMISTRY Troponin-T null 0.000 - 0.100 07/08/2011 Normal [facility] CHEMISTRY Myoglobin 48 ng/mL 25 - 72 07/08/2011 Normal [facility] CHEMISTRY CK MB 0.6 ng/mL 0.5 - 3.6 07/08/2011 Normal [facility] CHEMISTRY CK MB Index 0.5 0.0 - 2.5 07/08/2011 Normal [facility] CHEMISTRY UDS Note See Note 2 *NA* (07/07/2011 12:05:00) 07/07/2011 NA 2Interpretive Data: Drugs reported as positive have [...] 50 ng/mLMethadone 300 ng/mLUrine alcohol 20 mg/dL [facility] CHEMISTRY U Phencyc Scr Negative *NA* (07/07/2011 12:05:00) Negative 07/07/2011 NA [facility] CHEMISTRY U Cannab Scr Negative *NA* (07/07/2011 12:05:00) Negative 07/07/2011 NA [facility] CHEMISTRY U Benzodia Scr Negative *NA* (07/07/2011 12:05:00) Negative 07/07/2011 NA [facility] CHEMISTRY U Marija Scr Negative *NA* (07/07/2011 12:05:00) Negative 07/07/2011 NA [facility] CHEMISTRY U Amph Scr Negative *NA* (07/07/2011 12:05:00) Negative 07/07/2011 NA [facility] CHEMISTRY U Cocaine Scr Negative *NA* (07/07/2011 12:05:00) Negative 07/07/2011 NA [facility] CHEMISTRY U Opiate Scr Negative *NA* (07/07/2011 12:05:00) Negative 07/07/2011 NA [facility] CHEMISTRY Troponin-I null 0.00 - 0.40 07/07/2011 Normal [facility] CHEMISTRY Phosphorus 3.7 mg/dL 2.5 - 4.5 07/07/2011 Normal [facility] CHEMISTRY Magnesium Lvl 2.1 mg/dL 1.8 - 2.4 07/07/2011 Normal [facility] CHEMISTRY B/C Ratio 14 6 - 25 07/07/2011 Normal [facility] CHEMISTRY AGAP 15.3 meq/L 10.0 - 20.0 07/07/2011 Normal [facility] CHEMISTRY A/G Ratio 1.0 0.7 - 1.6 07/07/2011 Normal [facility] CHEMISTRY Globulin 3.4 g/dL 2.0 - 4.0 07/07/2011 Normal [facility] CHEMISTRY Glucose Lvl 91 mg/dL 70 - 99 07/07/2011 Normal 1Interpretive Data: Adult reference range values reflect the clinical guidelinesof the [employer]. [facility] CHEMISTRY Sodium Lvl 141 meq/L 135 - 145 07/07/2011 Normal [facility] CHEMISTRY Potassium Lvl 4.3 meq/L 3.5 - 5.1 07/07/2011 Normal [facility] CHEMISTRY Calcium Lvl 8.5 mg/dL 8.5 - 10.5 07/07/2011 Normal [facility] CHEMISTRY CO2 25 meq/L 24 - 32 07/07/2011 Normal [facility] CHEMISTRY Chloride Lvl 105 meq/L 95 - 109 07/07/2011 Normal [facility] CHEMISTRY BUN 11 mg/dL 7 - 22 07/07/2011 Normal [facility] CHEMISTRY Creatinine Lvl 0.8 mg/dL 0.5 - 1.4 07/07/2011 Normal [facility] CHEMISTRY Total Protein 6.9 g/dL 6.4 - 8.4 07/07/2011 Normal [facility] CHEMISTRY ALT 103 U/L 0 - 65 07/07/2011 [facility] CHEMISTRY Albumin Lvl 3.5 g/dL 3.5 - 5.0 07/07/2011 Normal [facility] CHEMISTRY Alk Phos 96 U/L 39 - 136 07/07/2011 Normal [facility] CHEMISTRY Bili Total 0.5 mg/dL 0.2 - 1.3 07/07/2011 Normal [facility] CHEMISTRY AST 47 U/L 0 - 37 07/07/2011 [facility] CHEMISTRY Total CK 133 U/L 12 - 191 07/07/2011 Normal [facility] HEMATOLOGY Basophils 0.8 % 0.0 - 1.0 07/07/2011 Normal [facility] HEMATOLOGY Lymphocytes # 2.4 K/CMM 1.0 - 5.5 07/07/2011 Normal [facility] HEMATOLOGY Segs-Bands # 4.1 K/CMM 1.5 - 8.1 07/07/2011 Normal [facility] HEMATOLOGY Eosinophils # 0.3 K/CMM 0.0 - 0.5 07/07/2011 Normal [facility] HEMATOLOGY Monocytes # 0.8 K/CMM 0.0 - 0.8 07/07/2011 [facility] HEMATOLOGY Eosinophils 4.2 % 0.0 - 4.0 07/07/2011 [facility] HEMATOLOGY Monocytes 10.6 % 2.0 - 12.0 07/07/2011 [facility] HEMATOLOGY Basophils # 0.1 K/CMM 0.0 - 0.2 07/07/2011 [facility] HEMATOLOGY Segs 53.2 % 45.0 - 75.0 07/07/2011 Normal [facility] HEMATOLOGY Lymphocytes 31.2 % 20.0 - 40.0 07/07/2011 Normal [facility] HEMATOLOGY WBC 7.7 K/CMM 3.7 - 10.4 07/07/2011 [facility] HEMATOLOGY RDW 12.4 % 11.5 - 14.5 07/07/2011 Normal [facility] HEMATOLOGY MCHC 33.6 g/dL 32.0 - 36.0 07/07/2011 Normal [facility] HEMATOLOGY MPV 8.8 fL 7.4 - 10.4 07/07/2011 Normal [facility] HEMATOLOGY Platelet 166 K/CMM 133 - 450 07/07/2011 Normal [facility] HEMATOLOGY RBC 4.70 M/CMM 4.70 - 6.10 07/07/2011 Normal [facility] HEMATOLOGY Hgb 14.6 g/dL 14.0 - 18.0 07/07/2011 Normal [facility] HEMATOLOGY MCV 92.3 fL 80.0 - 94.0 07/07/2011 Normal [facility] HEMATOLOGY MCH 31.1 pg 27.0 - 31.0 07/07/2011 [place] [facility] HEMATOLOGY Hct 43.4 % 42.0 - 54.0 07/07/2011 Normal [facility] HEMATOLOGY INR 0.98 0.85 - 1.17 07/07/2011 Normal 3Interpretive Data: RECOMMENDED RANGES FOR PROTIME INR: 2.0-3.0 for most medical and surgical thromboembolic states. 2.5-3.5 for artificial heart valves and recurrent embolism.INR SHOULD BE USED ONLY FOR PATIENTS ON STABLE ANTICOAGULANT THERAPY. [facility] HEMATOLOGY PTT 29.2 s 22.9 - 35.8 07/07/2011 Normal 4Interpretive Data: Heparin Therapeutic Range: 57 - 92 Seconds [facility] HEMATOLOGY PT 13.0 s 12.0 - 14.7 07/07/2011 Normal [facility] URINALYSIS UA Bacteria None Seen (07/07/2011 11:37:00) None Seen 07/07/2011 Normal [facility] URINALYSIS Micro? Performed (07/07/2011 11:37:00) 07/07/2011 Normal [facility] URINALYSIS UA Sq Epi None Seen (07/07/2011 11:37:00) Few 07/07/2011 Normal [facility] URINALYSIS UA RBC None Seen (07/07/2011 11:37:00) 0 - 2 07/07/2011 Normal [facility] URINALYSIS UA WBC None Seen (07/07/2011 11:37:00) None Seen 07/07/2011 Normal [facility] URINALYSIS UA Urobilinogen 0.2 EU/dL 0.1 - 1.0 07/07/2011 Normal [facility] URINALYSIS UA Leuk Est Negative (07/07/2011 11:37:00) Negative 07/07/2011 Normal [facility] URINALYSIS UA Nitrite Negative (07/07/2011 11:37:00) Negative 07/07/2011 Normal [facility] URINALYSIS UA Bili Negative *NA* (07/07/2011 11:37:00) Negative 07/07/2011 NA [facility] URINALYSIS UA Ketones Negative mg/dL *NA* (07/07/2011 11:37:00) Negative 07/07/2011 NA [facility] URINALYSIS UA Blood Negative (07/07/2011 11:37:00) Negative 07/07/2011 Normal [facility] URINALYSIS UA Glucose Negative mg/dL (07/07/2011 11:37:00) Negative 07/07/2011 Normal [facility] URINALYSIS UA Spec Grav 1.010 <=1.030 07/07/2011 Normal [facility] URINALYSIS UA Turbidity Clear (07/07/2011 11:37:00) Clear 07/07/2011 Normal [facility] URINALYSIS UA pH 6.0 5.0 - 8.0 07/07/2011 Normal [facility] URINALYSIS UA Protein Negative mg/dL (07/07/2011 11:37:00) Negative 07/07/2011 Normal [facility] URINALYSIS UA Color Yellow *NA* (07/07/2011 11:37:00) Yellow 07/07/2011 NA [facility] Vital Signs Vital Sign Value Date Comments Source Temperature Oral (F) 98.1 F 02/12/2015 [facility] Heart Rate 61 02/12/2015 [facility] Respitory Rate 17 02/12/2015 [facility] Systolic (mm Hg) 112 02/12/2015 [facility] Diastolic (mm Hg) 68 02/12/2015 [facility] Systolic (mm Hg) 150 02/12/2015 [facility] Respitory Rate 17 02/12/2015 [facility] Diastolic (mm Hg) 78 02/12/2015 [facility] Temperature Oral (F) 98.1 F 02/12/2015 [facility] Heart Rate 78 02/12/2015 [facility] Heart Rate 85 02/12/2015 [facility] Respitory Rate 18 02/12/2015 [facility] Systolic (mm Hg) 168 02/12/2015 [facility] Diastolic (mm Hg) 76 02/12/2015 [facility] Height 180.34 cm 02/12/2015 [facility] BMI Calculated 40.53 02/12/2015 [facility] Weight 131.818 02/12/2015 [facility] Temperature Oral (F) 98.1 F 02/12/2015 [facility] Diastolic (mm Hg) 73 07/08/2011 [facility] Systolic (mm Hg) 116 07/08/2011 [facility] Respitory Rate 20 07/08/2011 [facility] Heart Rate 72 07/08/2011 [facility] Temperature Oral (F) 97.6 F 07/08/2011 [facility] Temperature Oral (F) 97.6 F 07/08/2011 [facility] Respitory Rate 20 07/08/2011 [facility] Systolic (mm Hg) 136 07/08/2011 [facility] Diastolic (mm Hg) 84 07/08/2011 [facility] Diastolic (mm Hg) 65 07/08/2011 [facility] Systolic (mm Hg) 127 07/08/2011 [facility] Respitory Rate 18 07/08/2011 [facility] Temperature Oral (F) 97.2 F 07/08/2011 [facility] Heart Rate 81 07/08/2011 [facility] Heart Rate 81 07/08/2011 [facility] Height 180.34 cm 07/07/2011 [facility] Weight 122.727 07/07/2011 [facility] Encounters Location Location Details Encounter Type Encounter Number Reason For Visit Attending Provider ADM Date DC Date Status Source [facility] OU [id number] GIACOMO DEVINE 07/07/2011 07/08/[address] [facility] [id number] Mayura Phadtare 02/12/2015 02/12/2015 [facility] Procedures Procedure Code Date Perfomer Comments Source Cholecystectomy [id number] [facility]
--- OUTSIDE RECORDS SUMMARY | 2018-03-14 10:56 | XMS REPORT ---
Author Author [facility] Address Unknown Phone Unavailable Care Team Providers Care Chlorinator Name Role Phone NATALY SERNA Unavailable Unavailable Problems This patient has no known problems. Allergies, Adverse Reactions, Alerts This patient has no known allergies or adverse reactions. Medications This patient has no known medications. Results Test Description Test Time Test Comments Text Results Atomic Results Result Comments ABDOMEN-1VIEW (KUB) 2018-02-19 15:40:00 [place] [address] Patient Name: SANDRA SALGUERO MR #: [id number] : 1955 Age/Sex: 62/M Req #: [id number] Adm Physician: Ordered by: NATALY SERNA MD Report #: [id number] [facility]: [facility] Room/Bed: Procedure: [id number] DX/ABDOMEN-1VIEW (KUB) Exam Date: 02/19/18 Exam Time: 1427 REPORT STATUS: Signed Exam: KUB. Comparison: <None.> Findings: There is a nonobstructive bowel gas pattern. There is no free intraperitoneal air. Bowel gas partially obscures visualization of the kidneys. A 6 mm and a 7 mm calcification projects over the right mid abdomen. There is a 3 mm calcification in a right paraspinal location at the L2 level. Status post cholecystectomy. Impression: Limited evaluation of the kidneys secondary to overlying bowel gas. Calcifications measuring 6 and 7 mm in the right mid abdomen may represent renal stones or overlying bowel. A 3 mm calcification at the right L2 level is indeterminate and may represent a ureteral stone and can be correlated with symptoms. Signed by: Dr. Trina Dolan MD on 02/19/2018 3:45 PM Dictated By: TRINA DOLAN MD [id number] Transcribed By: JACINTA on 02/19/18 1542 COPY TO: NATALY SERNA MD
[2018-03-14 12:01] LABS: BASOPHILS # (AUTO) 0.1 (0.0-0.1); BASOPHILS % 1.3 % (0.0-1.0); EOSINOPHILS # (AUTO) 0.3 (0.0-0.4); EOSINOPHILS % 4.4 % (0.0-6.0); HEMATOCRIT 45.7 % (38.2-49.6); HEMOGLOBIN 15.9 g/dL (14.0-18.0); LYMPHOCYTES # (AUTO) 2.2 (1.0-3.2); LYMPHOCYTES % 31.5 % (18.0-39.1); MEAN CORPUSCULAR HEMOGLOBIN 32.1 pg (28-32); MEAN CORPUSCULAR HGB CONC 34.8 g/dL (31-35); MEAN CORPUSCULAR VOLUME 92.1 fL (81-99); MONOCYTES # (AUTO) 0.9 (0.2-0.8); MONOCYTES % 13.2 % (4.4-11.3); NEUTROPHILS # (AUTO) 3.4 (2.1-6.9); NEUTROPHILS % 49.3 % (38.7-80.0); PLATELET COUNT 184 x10e3/uL (140-360); RED BLOOD COUNT 4.96 x10e6/uL (4.3-5.7)
--- NOTE | 2018-03-14 12:59 | Diagnostic Imaging Report ---
EXAMINATION: CHEST 2 VIEWS INDICATION: Pre-op COMPARISON: None FINDINGS: TUBES and LINES: None. LUNGS: Lungs are well inflated. Linear opacity in the left lower lung likely represents subsegmental atelectasis. There is no evidence of pneumonia or pulmonary edema. PLEURA: No pleural effusion or pneumothorax. HEART AND MEDIASTINUM: The cardiomediastinal silhouette is unremarkable. BONES AND SOFT TISSUES: No acute osseous lesion. Degenerative changes of the visualized spine. UPPER ABDOMEN: No free air under the diaphragm. IMPRESSION: No acute radiographic abnormality. Signed by: Dr. Abundio Webb MD on 03/14/2018 12:56 PM
--- NOTE | 2018-03-14 13:03 | Diagnostic Imaging Report ---
Exam: KUB - 2 views Comparison: KUB 02/19/2018. Findings: There is a nonobstructive bowel gas pattern. There is no free intraperitoneal air. Bowel gas partially obscures visualization of the kidneys. A 7 mm calcification projects over the right upper kidney. Previously noted 6 mm right sided calcification is not seen. A 3 mm calcification is seen in a right paraspinal location at the L2 level. Status post cholecystectomy. Impression: Limited evaluation of the kidneys secondary to overlying bowel gas. Calcifications measuring 7 mm in the right mid abdomen may represent renal stone. Renal ultrasound could be considered for further evaluation. A 3 mm calcification at the right L2 level is indeterminate and may represent a ureteral stone and can be correlated with symptoms. Signed by: Dr. Abundio Webb MD on 03/14/2018 1:00 PM
[2018-03-14 15:00] VITALS: BP 141/96
--- NOTE | 2018-03-14 15:05 | Operative Report ---
DATE OF PROCEDURE: March 14, 2018 PREOPERATIVE DIAGNOSIS: Right-sided kidney stone. POSTOPERATIVE DIAGNOSIS: Right-sided kidney stone. PROCEDURES 1. Staged right-sided shock wave lithotripsy. 2. Supervision of fluoroscopy. ANESTHESIA: General. ESTIMATED BLOOD LOSS: Minimal. COMPLICATIONS: None. INDICATIONS: Mr. Lyon is a very pleasant 62-year-old male with a history of right-sided kidney stone. He and I had a long discussion about alternatives, risks and benefits, including doing nothing, shock wave lithotripsy, ureteroscopy, percutaneous surgery and open surgery. He voiced understanding of the options, alternatives, risks, and benefits and elected to proceed. PROCEDURE IN DETAIL: After informed consent was obtained, the patient was taken to the operative suite, placed supine and underwent general anesthesia by the anesthesia service. The stone was then localized in the X, Y and Z planes. A total of 2000 shocks were delivered to the stone per treatment port. The patient tolerated the procedure well and was transported to the recovery room in excellent condition with no untoward events noted. SUPERVISION OF FLUOROSCOPY: I was present throughout the entire procedure and I supervised the use of fluoroscopy as no radiologist was present. Job#: [id number] LELIA
== END | disposition home or self-care (01) ==
LOC: OR 10:53
PROVIDERS: ATTEND Urology
DX: N20.0 Calculus of kidney (principal); N13.39 Other hydronephrosis; N39.0 Urinary tract infection, site not specified; N40.1 Benign prostatic hyperplasia with lower urinary tract symptoms; N13.8 Other obstructive and reflux uropathy; I10 Essential (primary) hypertension; G47.33 Obstructive sleep apnea (adult) (pediatric); I48.91 Unspecified atrial fibrillation; I44.0 Atrioventricular block, first degree; I49.3 Ventricular premature depolarization; K21.9 Gastro-esophageal reflux disease without esophagitis; F41.9 Anxiety disorder, unspecified; Z01.810 Encounter for preprocedural cardiovascular examination; Z68.41 Body mass index [BMI] 40.0-44.9, adult
CPT/HCPCS: 36415; 50590; 71046; 74018; 85025; 93005; J0696; J1100; J2001; J2405; J2704